=== PATIENT | female | born 1940 | race Caucasian/White ===

== ENCOUNTER 2020-10-31 10:37 | Outpatient (CLI) | payer MEDICARE, SELFPAY ==
--- NOTE | ~2020-10-31 | MM_ITS ---
EXAMINATION: MM screening jackelyn BI w jeevan HISTORY: Screening mammogram TECHNIQUE: Craniocaudal and mediolateral oblique 3-D tomosynthesis images were obtained and synthetic 2-D images were generated. CAD analysis was submitted and interpreted. COMPARISON: 01/11/2008 diagnostic right digital mammogram and right breast ultrasound 10/16/2017 bilateral digital screening mammogram BREAST PARENCHYMAL COMPOSITION: There are scattered areas of fibroglandular density. FINDINGS: There is no evidence of suspicious mass, calcification, or architectural distortion to sugg est malignancy in either breast. There has been no suspicious interval change. IMPRESSION: 1. No mammographic evidence of malignancy. 2. Recommend routine screening mammography in one year. Reviewed, dictated and finalized at location B. [employer]
== END 2020-10-31 10:38 | disposition home or self-care (01) ==
LOC: ANHIMG 10:41
PROVIDERS: PCP Internal Medicine; Visit Provider Nurse Practitioner
DX: Z12.31 Encounter for screening mammogram for malignant neoplasm of breast (principal)
CPT/HCPCS: 77063; 77067

== ENCOUNTER 2021-02-03 14:55 | Observation (INO) | payer MEDICARE, SELFPAY ==
[2021-02-03] VITALS (29 sets, daily range): BP systolic 106–154; BP diastolic 59–100; PULSE 65–79; RESP 10–18; TEMP 36.4; O2SAT 97–100
--- NOTE | ~2021-02-03 | XR_ITS ---
XR shoulder RT min 2V DATE: 02/03/2021 17:52 INDICATION: Fall, right shoulder injury, pain TECHNIQUE: 3 views COMPARISON: 02/03/2021 right humerus FINDINGS: There is a minimally comminuted transverse surgical neck fracture of the proximal right hum erus, with mild impaction, mild medial displacement, mild apex medial angulation. Diffuse osteopenia. Normal alignment at the acromioclavicular and glenohumeral joints. IMPRESSION: Transverse surgical neck fracture of proximal right humerus Diffuse osteopenia Reviewed, dictated and finalized at location A.
--- NOTE | ~2021-02-03 | XR_ITS ---
EXAMINATION: XR humerus RT DATE: 02/03/2021 15:59 INDICATION: Right upper arm injury and pain. TECHNIQUE: 2 views of right humerus were obtained. COMPARISON: None. FINDINGS: There is a transverse fracture of surgical neck of proximal right humerus. The distal fract ure fragment demonstrates impaction, 6 mm medial displacement, and 26 degrees lateral angulation. The glenohumeral joint is not well profiled. There is moderate acromioclavicular joint osteoarthritis. IMPRESSION: 1. Two-part fracture of proximal right humerus. Reviewed, dictated and finalized at location A.
--- NOTE | ~2021-02-03 | CT_ITS ---
EXAMINATION: CT brain wo con DATE: 02/05/2021 11:17 INDICATION: Head injury. TECHNIQUE: Computed tomography (CT) of the head was performed without intravenous contrast. The mA wa s adjusted according to patient size. Iterative reconstruction technique was employed. The dose-lengt h product was 605.33 mGy-cm. COMPARISON: Head CT 06/07/2017 FINDINGS: There are scattered areas of low attenuation in the cerebral white matter. There is no intr acranial hemorrhage, acute infarction, or abnormal intracranial mass lesion. The ventricles are verito l in size. The orbits are normal. There is mild mucosal thickening in the paranasal sinuses. The mast oid air cells are normal. IMPRESSION: 1. Worsened moderate nonspecific cerebral white matter disease, which likely represents chronic small vessel ischemic disease. Reviewed, dictated and finalized at location A. IMPRESSION: 1. Worsened moderate nonspecific cerebral white matter disease, which likely re presents chronic small vessel ischemic disease.
--- NOTE | ~2021-02-03 | XR_ITS ---
EXAMINATION: XR knee LT 3V DATE: 02/03/2021 15:59 INDICATION: Left knee pain. Fall. TECHNIQUE: 3 views of left knee were obtained. COMPARISON: Left knee radiographs 02/26/2007 FINDINGS: There is an old healed fracture of tibial diaphysis with internal fixation with intramedull maninder katerina and cable. There is a nondisplaced stellate fracture of the patella. There is moderate osteoa rthritis of medial compartment and mild osteoarthritis of lateral and patellofemoral compartments. Th ere is a moderate-sized knee joint effusion. IMPRESSION: 1. Nondisplaced stellate fracture of the patella. 2. Moderate left knee osteoarthritis. 3. Moderate-sized knee joint effusion. Reviewed, dictated and finalized at location A.
--- NOTE | ~2021-02-03 | XR_ITS ---
EXAMINATION: XR facial bones min 3V DATE: 02/03/2021 15:59 INDICATION: Face injury. Epistaxis. TECHNIQUE: 4 views of the facial bones were obtained. COMPARISON: Head CT 06/07/2017 FINDINGS: There is mild rightward deviation of the nasal septum. There are fractures of the nasal bon es. IMPRESSION: 1. Fractures of the nasal bones. Reviewed, dictated and finalized at location A.
--- NOTE | ~2021-02-03 | XR_ITS ---
XR chest 2V DATE: 02/03/2021 17:52 INDICATION: Generalized chest pain following a fall. TECHNIQUE: AP chest COMPARISON: 02/19/2009 two-view chest FINDINGS: Borderline heart size. There is aortic calcification and unfolding. No hilar or mediastinal enlargement. Diffuse osteopenia. Right surgical neck humeral fracture. Minimal infiltrate or atelectasis at the right lung base; otherwise no pulmonary infiltrate or consol idation, pleural effusion or pulmonary vascular congestion or pneumothorax is evident. Surgical clips extend either side of the diaphragmatic hiatus in the lower mid chest and left upper q uadrant. IMPRESSION: Right surgical neck humeral fracture Borderline heart size, aortic atherosclerosis Minimal infiltrate or atelectasis at the right lung base; otherwise no active pulmonary disease Reviewed, dictated and finalized at location A. IMPRESSION: Right surgical neck humeral fracture Borderline heart size, aortic atherosclerosis Minimal infiltrate or atelectasis at the right lung base; otherwise no active p ulmonary disease
--- NOTE | 2021-02-03 17:39 | ED.GENADULT ---
HPI - General Adult General Chief complaint: Fall Stated complaint: fall, right arm pain and left knee pain Time Seen by Provider: 02/03/21 17:32 Source: patient History of Present Illness HPI narrative: Patient is a 80 y/o female complaining of right shoulder pain, left knee after a fall. She states she tripped over a parking block at a restaurant approximately 3 hours ago. She describes her pain as a soreness and rates it as 8/10. There is no pain radiation. Movement aggravates her pain. She also struck on face on the ground. She has some chest pain. She denies any headache, neck pain, back pain or abdominal pain. She has no LOC. She is not sure when she had her last Tetanus shot. Related Data Home Medications Medication Instructions Recorded Confirmed coconut oil 1,000 mg capsule mg PO 09/07/19 09/17/20 Allergies Allergy/AdvReac Type Severity Reaction Status Date / Time No Known Allergies Allergy Verified 02/03/21 18:34 Review of Systems Constitutional: Constitutional: Denies chills, Denies fever(s), Denies headache(s) and Denies weakness Eyes: Eyes: Denies blurry vision ENT: Denies headache(s), Reports nasal trauma and Denies neck pain Cardiovascular: Cardiovascular: Reports chest pain and Denies dyspnea Respiratory: Respiratory: Denies cough and Denies dyspnea Gastrointestinal: Gastrointestinal: Denies abdominal pain, Denies diarrhea, Denies nausea and Denies vomiting Genitourinary: Genitourinary: Denies hematuria and Denies dysuria Musculoskeletal: Musculoskeletal: Denies back pain, Reports arthralgias (right shoulder pain, left knee pain) and Denies neck pain Neurologic: Denies headache(s) and Denies weakness [facility] Past Medical History Medical History Depression Post-menopausal Screening for breast cancer Surgical History Surgical History History of colonoscopy Family History Family History Mother Family history of arthritis Family history of diabetes mellitus in first degree relative Sibling Family history of diabetes mellitus in first degree relative Family history of heart disease in male family member before age 55 Father Acute myocardial infarction Other Hypertension Social History Social History Smoking status: Never smoker Second hand tobacco smoke exposure: No Alcohol intake: current Gender identity (if verbalized by the patient): Female Exam Const: General: no acute distress and well developed Orientation/consciousness: oriented to person, oriented to place, oriented to time and patient oriented x3 HENMT: Head: normocephalic Ears: external ears normal General nose exam: Other nasal findings present (bruise, abrasion on external nose) Eyes: General: appearance normal, both eyes and all related structures Conjunctivae: conjunctivae normal Neck: Neck: normal visual inspection and full ROM Chest: Chest palpation & inspection: normal inspection of the chest and no tenderness Resp: Effort & Inspection: normal respiratory effort Auscultation: clear to auscultation bilaterally Cardio: Rate: regular rate Rhythm: regular rhythm GI: GI Palp: No abdominal tenderness and Yes Soft to palpation Skin: General skin exam: normal color and turgor normal Trauma: abrasion (on nose) Neuro: General: oriented to person, oriented to place, oriented to time and patient oriented x3 Cognition (Neuro): normal cognition Extrem: General: normal to inspection, full ROM and no pedal edema Right upper extremity: shoulder/upper arm tenderness Left lower extremity: knee Details: tenderness Psych: Appearance: grossly normal Mental Status: mental status grossly normal Affect: normal affect Course Reevaluation(s) Reevaluation #1: Rechecked. Discussed with patient about alejo
--- NOTE | 2021-02-03 17:45 | ECG_ITS ---
Measurements Intervals Henniker Rate: 74 P: 29 OR: 152 QRS: -18 QRSD: 86 T: 11 QT: 392 QTc: 436 Interpretive Statements SINUS RHYTHM DELAYED PRECORDIAL R/S TRANSITION BORDERLINE T WAVE ABNORMALITY- ANT/INF LEADS BASELINE ARTIFACT- I, II, III, AVR, AVL, AVF BORDERLINE ECG Electronically Signed On 02-04-2021 8:23:44 CDT by Dominguez Jack D.O.
[2021-02-03] MEDS: HYDROcodone/acetaminophen (*CRX) 5-325 MG TABLET 1 TAB PO ×2 (18:34→21:52)
[2021-02-03 18:42] LABS: Basophils Percent Auto 0.3 % (0.2-1.2); Eosinophils Percent Auto 0.1 % (0-4.4); Hematocrit 38.9 % (37.0-47.0); Hemoglobin 12.4 g/dL (12.0-15.0); Immature Granulocyte Absolute 0.03 K/mm3 (0.00-0.031); Immature Granulocyte Percent A 0.3 % (0-0.5); Lymphocytes Absolute Auto 0.81 K/mm3 (0.9-3.2); Lymphocytes Percent Auto 7.5 % (18.3-44.2); Mean Corpuscular HGB Conc 31.9 g/dl (32-36); Mean Platelet Volume 9.9 fl (7.4-10.4); Monocytes Absolute Auto 0.6 K/mm3 (0.1-0.6); Monocytes Percent Auto 5.4 % (2.6-8.5); Neutrophils Absolute Auto 9.3 K/mm3 (1.3-6.7); Neutrophils Percent Auto 86.4 % (45.5-73.1); Platelet Count Result 236 k/mm3 (150-375); Red Blood Count 4.14 M/mm3 (4.2-5.4); Red Cell Distribution Width 15.8 % (11.5-14.5); White Blood Count 10.8 K/mm3 (4.5-10.0)
[2021-02-03 18:52] LABS: Alanine Aminotransferase 11 U/L (4-35); Albumin Level 3.7 g/dL (3.5-5.1); Alkaline Phosphatase 85 U/L (38-126); Anion Gap 4 mmol/L (8-16); Aspartate Amino Transferase 28 U/L (14-36); Bilirubin,Total 0.7 mg/dL (0.2-1.3); Blood Urea Nitrogen 9 mg/dL (7-17); Carbon Dioxide 28 mmol/L (22-30); Chloride 109 mmol/L (98-107); Estimated CRCL calculation 40 ml/min; Estimated Glomerular Filt Rate 60; Glucose 118 mg/dL (65-105); Potassium 4.1 mmol/L (3.4-5.0); Sodium 141 mmol/L (137-145)
[2021-02-03 19:04] LABS: Troponin I < 0.012 ng/mL (0.000-0.034)
[2021-02-03 22:11] LABS: Troponin I < 0.012 ng/mL (0.000-0.034)
[2021-02-03] MEDS: TETANUS,DIPHTHERIA,AC PERTUSSIS ADULT (0.5 ML) BOOSTRIX IM (22:46)
--- NOTE | 2021-02-03 23:25 | PC.NURSE ---
Pt was aliment that she go home. Pt was assisted with getting dressed with Rt arm immobilizer and Lt knee immobilizer. Pt however, was unable to safely navigate into the car. Pt brought back to ER room for admission. Dr Johnston talking with family.
[2021-02-04] VITALS (8 sets, daily range): BP systolic 121–138; BP diastolic 61–84; PULSE 61–99; RESP 16–20; TEMP 36.3–37; O2SAT 94–100; BMI 29.2
--- NOTE | 2021-02-04 00:47 | ADMGEN ---
This patient, Lsia Oneal, was admitted to Medical Room 246-. Patient/family oriented to hospital policies and general routines including ID bracelet, bed and alarms, visiting hours, pain management, procedures, bathroom and other care routines, personal items, smoking policy, room service/diet, and visiting hours. Information on how to activate the Rapid Response Team has been discussed. Patient/Family are encouraged to report perceived risks to care and to ask questions if they do not understand what they are told or what they should do.
--- NOTE | 2021-02-04 01:28 | PM.IMHP ---
H&P: HPI History of Present Illness Date/Time: 02/04/21 01:28 Chief Complaint: Right upper extremity and left knee pain after fall Narrative: This is a pleasant 80-year-old female who presented to the hospital today after she tripped over a parking block outside of a restaurant and fell. The patient fell face forward and hit her face on the ground as well as her right upper extremity and left knee. She denies passing out, seizure-like activity, chest pain, or shortness of breath before falling. On arrival to the emergency room the patient was complaining of right upper extremity pain and left knee pain. She denied any recent fevers, chills, cough, nausea, vomiting, chest pain, shortness of breath, wheezing, abdominal pain, dysuria, hematuria, diarrhea, or rectal bleeding. Plain films demonstrated a two-part fracture of proximal right humerus and a nondisplaced stellate fracture of the patella. The patient was placed in a splint and ER provider attempted to send her home although her son could not get her in the car and they decided she would be better admitted to the hospital for possible placement or rehab as her family clearly will not be able to care for her. On my encounter with the patient tonight her pain is controlled and she has no other complaints. Review of Systems Review of Systems: All systems reviewed & are unremarkable except as noted in HPI and below PMFSH Past Medical History Medical History Depression Post-menopausal Screening for breast cancer Surgical History Surgical History History of colonoscopy Family History Family History Mother Family history of arthritis Family history of diabetes mellitus in first degree relative Sibling Family history of heart disease in male family member before age 55 Family history of diabetes mellitus in first degree relative Father Acute myocardial infarction Social History Social History Smoking status: Never smoker Second hand tobacco smoke exposure: No Alcohol intake: current Drinks per week: 7 Substance use: never Other substance usage details: patient says she drinks alittle rum or wiskey every night Gender identity (if verbalized by the patient): Female Spiritual care concerns: No Meds Home Medications and Allergies Home Medications Medication Instructions Recorded Confirmed Type omeprazole 40 mg capsule,delayed 40 mg PO DAILY #90 cap 08/29/20 02/04/21 Rx release alendronate 70 mg tablet 70 mg PO WEEKLY #30 tablet 09/17/20 02/04/21 Rx aspirin 81 mg PO DAILY 02/04/21 02/04/21 History Allergies Allergy/AdvReac Type Severity Reaction Status Date / Time No Known Allergies Allergy Verified 02/03/21 18:34 Vital Signs Vital Signs - 24 hr 02/03/21 14:58 02/03/21 17:35 02/03/21 17:36 Temperature 36.4 C Pulse Rate 75 79 Respiratory Rate 18 15 Blood Pressure 154/63 H 124/83 Pulse Oximetry 98 99 100 02/03/21 17:37 02/03/21 18:37 02/03/21 18:45 Temperature Pulse Rate Respiratory Rate Blood Pressure 124/83 Pulse Oximetry 100 99 100 02/03/21 18:47 02/03/21 19:00 02/03/21 19:01 Temperature Pulse Rate Respiratory Rate Blood Pressure 139/66 121/80 Pulse Oximetry 98 99 100 02/03/21 19:15 02/03/21 19:16 02/03/21 19:30 Temperature Pulse Rate Respiratory Rate Blood Pressure 133/96 H Pulse Oximetry 99 100 100 02/03/21 19:32 02/03/21 19:45 02/03/21 19:46 Temperature Pulse Rate Respiratory Rate Blood Pressure 128/76 128/100 H Pulse Oximetry 98 98 98 02/03/21 19:47 02/03/21 20:01 02/03/21 20:17 Temperature Pulse Rate Respiratory Rate Blood Pressure 154/69 H 115/86 Pulse Oximetry 98 02/03/21 20:31 02/03/21 20:46
[2021-02-04] MEDS: HYDROcodone/acetaminophen (*CRX) 5-325 MG TABLET 1 TAB PO ×2 (01:38→14:33)
[2021-02-04] MEDS: MORPHINE SULFATE (*CRX) 2 MG/ML INJ IV PUSH ×2 (03:48→07:44)
--- NOTE | 2021-02-04 07:34 | PM.CNOR ---
Assessment and Plan Assessment and plan (1) Fracture of proximal end of humerus: Qualifiers: Encounter type: initial encounter Fracture alignment: displaced Fracture morphology: other fracture Fracture type: closed Laterality: right Qualified Code(s): S42.291A - Other displaced fracture of upper end of right humerus, initial encounter for closed fracture Code(s): S42.209A - Unspecified fracture of upper end of unspecified humerus, initial encounter for closed fracture Status: Acute Assessment and Plan: New patient evaluation status post injury fall with injury rt shoulder and left knee. The history, physical exam and radiographs reviewed with the patient. Type of fractures discussed in detail . Treatment options including operative and non operative treatment reviewed . Risks, benefits and alternatives of each treatment discussed in detail . The patient has declined surgical treatment. Risks of treatment decision discussed in detail. Potential problems with displacement of the fracture, loss of alignment, nonunion, malunion and dysfunction discussed in detail. The patient's questions were answered. They verbalized understanding and agreement. Conservative treatment with immobilization, ice. Currently in immobilizer (2) Closed fracture of left patella: Qualifiers: Encounter type: initial encounter Fracture alignment: displaced Fracture morphology: comminuted Qualified Code(s): S82.042A - Displaced comminuted fracture of left patella, initial encounter for closed fracture Code(s): S82.002A - Unspecified fracture of left patella, initial encounter for closed fracture Status: Acute Assessment and Plan: Treatment options including operative and non operative treatment reviewed . Risks, benefits and alternatives of each treatment discussed in detail . The patient has declined surgical treatment. Risks of treatment decision discussed in detail. Potential problems with displacement of the fracture, loss of alignment, nonunion, malunion and dysfunction discussed in detail. The patient's questions were answered. They verbalized understanding and agreement. Conservative treatment with immobilization, ice , compression and elevation. Knee immobilizer. WBAT. Therapy to eval and assist with transfers. May need extended placement History of Present Illness HPI Consult date: 02/04/21 Requesting physician: Bebe Johnston MD Chief complaint: right shoulder fracture, left knee fracture Narrative: 80yo woman fall yesterday. On ER exam found to have rt shoulder and left knee fxs, Unable to ambulate on own. Admitted for further care. No prior hx of shoulder or knee problems from patient report. Lives with son, independent ambulator. Also with facial injuries at time of fall. Denies LOC, head or neck injury. Review of Systems Constitutional: Constitutional: Denies fever(s) Eyes: Eyes: Denies blurry vision ENT: Reports Normal hearing present Cardiovascular: Cardiovascular: Denies chest pain and Denies dyspnea Respiratory: Respiratory: Denies dyspnea and Denies wheezing Gastrointestinal: Gastrointestinal: Denies abdominal pain Genitourinary: Genitourinary: Denies urinary urgency Musculoskeletal: Musculoskeletal: Reports as per HPI and Denies numbness Integumentary/Breasts: Skin/Breast: Denies changing lesions and Denies sores Neurologic: Reports Normal hearing present, Denies behavioral changes, Denies confusion, Denies numbness and Denies convulsions Psychiatric: Psychiatric: Denies behavioral changes, Denies confusion and Denies hallucinations Endocrine: Endocrine: Denies heat intolerance Hematologic/Lymphatic: Hematologic/Lymphatic: Denies easy bleeding Allergic/Immunologic: Allergic/Immunologic: Denies wheezing PMFSH Past Medical History Medical History Depression Post-menopausal Screening for breast cancer
[2021-02-04] MEDS: PANTOPRAZOLE 40 MG TABLET PO (08:01)
--- NOTE | 2021-02-04 15:42 | PM.IMPN ---
Progress Note: A&P Assessment and Plan (1) Fall: Code(s): W19.XXXA - Unspecified fall, initial encounter Status: Acute Assessment and Plan: Patient had a mechanical fall on 02/03/2021 in which she tripped over a parking block outside of a restaurant. Denies any precipitating symptoms including dizziness or lightheadedness. She struck her face on the ground during the fall. She denied loss of consciousness. The fall was witnessed and she was helped up immediately. Will obtain head CT Fall precautions in place Appreciate PT/OT evaluation She received tetanus shot on 02/03/2021 Care coordination following. She will likely need ongoing therapy given her injuries. (2) Fracture of proximal end of humerus: Qualifiers: Encounter type: initial encounter Fracture alignment: displaced Fracture morphology: other fracture Fracture type: closed Laterality: right Qualified Code(s): S42.291A - Other displaced fracture of upper end of right humerus, initial encounter for closed fracture Code(s): S42.209A - Unspecified fracture of upper end of unspecified humerus, initial encounter for closed fracture Status: Acute Assessment and Plan: Secondary to fall. Humerus x-ray showed 2 part fracture proximal right humerus. Shoulder x-ray showed transverse surgical neck fracture of proximal right humerus. Appreciate orthopedic surgery consultation Patient has elected for conservative management. Continue immobilizer Supportive care to include ice and elevation Analgesics available as needed (3) Closed fracture of left patella: Qualifiers: Encounter type: initial encounter Fracture alignment: displaced Fracture morphology: comminuted Qualified Code(s): S82.042A - Displaced comminuted fracture of left patella, initial encounter for closed fracture Code(s): S82.002A - Unspecified fracture of left patella, initial encounter for closed fracture Status: Acute Assessment and Plan: Again secondary to fall. Knee x-ray showed nondisplaced delayed fracture of patella Plan as above. Appreciate orthopedic surgery consultation and PT/OT eval. Continue supportive care. Analgesics available as needed. Continue knee immobilizer and weight-bearing as tolerated. (4) Nasal fracture: Qualifiers: Encounter type: initial encounter Fracture type: closed Qualified Code(s): S02.2XXA - Fracture of nasal bones, initial encounter for closed fracture Code(s): S02.2XXA - Fracture of nasal bones, initial encounter for closed fracture Status: Acute Assessment and Plan: Evident on facial x-ray with mild rightward deviation of the nasal septum. Sustained during fall. Supportive care and analgesics prn (5) Osteoporosis: Code(s): M81.0 - Age-related osteoporosis without current pathological fracture Status: Acute Assessment and Plan: DEXA performed 11/02/2019 demonstrated osteoporosis. She is on weekly alendronate therapy. She home benefit from repeat DEXA scan as an outpatient for further evaluation and may need medication adjustment Check vitamin-D level Subjective Date/time seen: 02/04/21 15:42 Interval history: Date of service: 02/04/2021 Lisa Oneal is a healthy 80-year-old female with a history of depression who is seen in follow-up for injuries sustained in a mechanical fall. She is having pain today that she reports as 8/10, especially in the knee and the right arm. Her nose is sore from her fracture. Otherwise, she reports she is doing very well and has no additional concerns. She states that she feels very depressed about being in the hospital and about having a fall. She notes that she has been trembling and she feels this is due to being anxious. She denies fever or chills. She denies abdominal pain, nausea, or vomiting. Her last bowel movement was 2-3 days ago and she reports this is ty
[2021-02-04 21:08] LABS: SARS-CoV-2 RNA PCR Negative
[2021-02-05 02:00] VITALS: BP 129/65; PULSE 87; RESP 20; TEMP 36.7; O2SAT 98
[2021-02-05] MEDS: HYDROcodone/acetaminophen (*CRX) 5-325 MG TABLET 1 TAB PO ×2 (04:20→11:33)
[2021-02-05 05:09] LABS: Hematocrit 33.6 % (37.0-47.0); Mean Corpuscular HGB Conc 32.7 g/dl (32-36); Mean Corpuscular Hemoglobin 30.3 pg (26-34); Mean Corpuscular Volume 92.6 fl (80-100); Mean Platelet Volume 10.1 fl (7.4-10.4); Platelet Count Result 215 k/mm3 (150-375); Red Blood Count 3.63 M/mm3 (4.2-5.4); Red Cell Distribution Width 15.8 % (11.5-14.5); White Blood Count 8.5 K/mm3 (4.5-10.0)
[2021-02-05 05:27] LABS: Anion Gap 4 mmol/L (8-16); Blood Urea Nitrogen 10 mg/dL (7-17); Calcium 8.6 mg/dL (8.4-10.2); Carbon Dioxide 26 mmol/L (22-30); Chloride 104 mmol/L (98-107); Estimated CRCL calculation 49 ml/min; Estimated Glomerular Filt Rate > 60; Glucose 111 mg/dL (65-105); Potassium 4.1 mmol/L (3.4-5.0); Sodium 134 mmol/L (137-145)
[2021-02-05 05:50] LABS: Vitamin D 25 Hydroxy 38.5 ng/mL
[2021-02-05 06:00] VITALS: BP 124/64; PULSE 84; RESP 20; TEMP 36.7; O2SAT 98
[2021-02-05] MEDS: PANTOPRAZOLE 40 MG TABLET PO (08:43)
--- NOTE | 2021-02-05 09:24 | PM.PNORT ---
Progress Note: A&P Assessment and Plan (1) Fracture of proximal end of humerus: Qualifiers: Encounter type: initial encounter Fracture alignment: displaced Fracture morphology: other fracture Fracture type: closed Laterality: right Qualified Code(s): S42.291A - Other displaced fracture of upper end of right humerus, initial encounter for closed fracture Code(s): S42.209A - Unspecified fracture of upper end of unspecified humerus, initial encounter for closed fracture Status: Acute Assessment and Plan: Continue conservative treatment with immobilization, ice Elevate on pillows. Pain control. (2) Closed fracture of left patella: Qualifiers: Encounter type: initial encounter Fracture alignment: displaced Fracture morphology: comminuted Qualified Code(s): S82.042A - Displaced comminuted fracture of left patella, initial encounter for closed fracture Code(s): S82.002A - Unspecified fracture of left patella, initial encounter for closed fracture Status: Acute Assessment and Plan: Continue conservative treatment with immobilization, ice, compression and elevation. Knee immobilizer. WBAT. PT/OT May benefit from aspiration of knee joint effusion for pain relief. Likely will require placement at discharge. Subjective Subjective Date/Time Seen: 02/05/21 0835 Interval history: Complaints of left knee pain mainly. Difficulty with PT due to pain. Review of Systems Constitutional: Constitutional: Denies fever(s) Eyes: Eyes: Denies blurry vision ENT: Reports Normal hearing present Cardiovascular: Cardiovascular: Denies chest pain and Denies dyspnea Respiratory: Respiratory: Denies dyspnea and Denies wheezing Gastrointestinal: Gastrointestinal: Denies abdominal pain Genitourinary: Genitourinary: Denies urinary urgency Musculoskeletal: Musculoskeletal: Reports as per HPI and Denies numbness Integumentary/Breasts: Skin/Breast: Denies changing lesions and Denies sores Neurologic: Reports Normal hearing present, Denies behavioral changes, Denies confusion, Denies numbness and Denies convulsions Psychiatric: Psychiatric: Denies behavioral changes, Denies confusion and Denies hallucinations Endocrine: Endocrine: Denies heat intolerance Hematologic/Lymphatic: Hematologic/Lymphatic: Denies easy bleeding Allergic/Immunologic: Allergic/Immunologic: Denies wheezing Exam Const: General: healthy appearing; No in distress or confusion Orientation/consciousness: oriented to person, oriented to place, oriented to time and No confusion HENMT: Head: normal to inspection, normocephalic and atraumatic Eyes: Conjunctivae: conjunctivae normal Sclera: sclerae normal Neck: Neck: supple and nontender Resp: Effort & Inspection: normal respiratory effort and no audible wheezes Cardio: Rate: regular rate Rhythm: regular rhythm Skin: General skin exam: no rashes or lesions noted Neuro: General: oriented to person, oriented to place, oriented to time and No confusion Extrem: Right upper extremity: shoulder/upper arm tenderness of the proximal humerus, swelling of the proximal humerus and of the shoulder joint, axillary nerve sensory function normal, abnormal ROM pain with passive ROM with internal rotation and external rotation- and with range as follows ( restricted secondary to fracture) and other (RC 3/5, Bicep 3/5, Deltoid 4/5, ER 3/5), elbow/forearm normal ROM; no tenderness and no swelling, wrist normal ROM and radial pulse present; no tenderness and Extremity exam: right hand neuromotor exam normal wrist extension normal, thumb opposition normal, thumb IP flexion normal and fingers 2-5 ABduction normal, neurosensory exam normal radial nerve sensory function normal, ulnar nerve sensory function normal, median nerve sensory function normal and digital nerve sensory function normal and vascular exam radial pulse present and normal capillary refill; no tenderness, no swe
[2021-02-05 10:00] VITALS: BP 115/66; PULSE 81; RESP 16; TEMP 36.4; O2SAT 98
--- NOTE | 2021-02-05 11:33 | PM.IMPN ---
Progress Note: A&P Assessment and Plan (1) Fall: Code(s): W19.XXXA - Unspecified fall, initial encounter Status: Acute Assessment and Plan: Patient had a mechanical fall on 02/03/2021 in which she tripped over a parking block outside of a restaurant. Denies any precipitating symptoms including chest pain, dizziness or lightheadedness. She struck her face on the ground during the fall. She denied loss of consciousness. The fall was witnessed and she was helped up immediately. Head CT was negative for acute findings. Fall precautions in place Appreciate PT/OT evaluation She received tetanus shot on 02/03/2021 Care coordination following. She will likely need ongoing therapy given her injuries. Planning for SNF. (2) Fracture of proximal end of humerus: Qualifiers: Encounter type: initial encounter Fracture alignment: displaced Fracture morphology: other fracture Fracture type: closed Laterality: right Qualified Code(s): S42.291A - Other displaced fracture of upper end of right humerus, initial encounter for closed fracture Code(s): S42.209A - Unspecified fracture of upper end of unspecified humerus, initial encounter for closed fracture Status: Acute Assessment and Plan: Secondary to fall. Humerus x-ray showed 2 part fracture of proximal right humerus. Shoulder x-ray showed transverse surgical neck fracture of proximal right humerus. Appreciate orthopedic surgery consultation Patient has elected for conservative management. Continue immobilizer Supportive care to include ice and elevation Analgesics available as needed (3) Closed fracture of left patella: Qualifiers: Encounter type: initial encounter Fracture alignment: displaced Fracture morphology: comminuted Qualified Code(s): S82.042A - Displaced comminuted fracture of left patella, initial encounter for closed fracture Code(s): S82.002A - Unspecified fracture of left patella, initial encounter for closed fracture Status: Acute Assessment and Plan: Again secondary to fall. Knee x-ray showed nondisplaced delayed fracture of patella Plan as above. Appreciate orthopedic surgery consultation and PT/OT eval. Continue supportive care. Analgesics available as needed. Continue knee immobilizer and weight-bearing as tolerated. (4) Nasal fracture: Qualifiers: Encounter type: initial encounter Fracture type: closed Qualified Code(s): S02.2XXA - Fracture of nasal bones, initial encounter for closed fracture Code(s): S02.2XXA - Fracture of nasal bones, initial encounter for closed fracture Status: Acute Assessment and Plan: Evident on facial x-ray with mild rightward deviation of the nasal septum. Sustained during fall. Supportive care and analgesics prn (5) Osteoporosis: Code(s): M81.0 - Age-related osteoporosis without current pathological fracture Status: Acute Assessment and Plan: DEXA performed 11/02/2019 demonstrated osteoporosis. She is on weekly alendronate therapy. Vitamin D level is sufficient. She will benefit from repeat DEXA scan as an outpatient for further evaluation and may need medication adjustment Subjective Date/time seen: 02/05/21 11:33 Interval history: Date of service: 02/05/2021 Lisa Oneal is a healthy 80-year-old female with a history of depression who is seen in follow-up for injuries sustained in a mechanical fall. She is still having pretty significant pain in her left knee today that she rates as 8/10. Her right arm pain has improved and she rates this as a 5/10. She has some soreness of her nose and face. No difficulty with breathing. She denies shortness breath, cough, or chest pain. Denies dizziness, lightheadedness, or weakness. No nausea or vomiting. Her appetite has been fair. Denies urinary symptoms. She thinks that she had a bowel movement yesterday. She has
[2021-02-05 14:00] VITALS: BP 114/66; PULSE 94; RESP 14; TEMP 36.6; O2SAT 97
[2021-02-05 18:00] VITALS: BP 115/66; PULSE 82; RESP 18; TEMP 36.9; O2SAT 99
[2021-02-05 21:44] VITALS: BP 125/73; PULSE 79; RESP 20; TEMP 37.1; O2SAT 97
[2021-02-06 01:08] VITALS: BP 134/89; PULSE 91; RESP 20; TEMP 37; O2SAT 98
[2021-02-06] MEDS: HYDROcodone/acetaminophen (*CRX) 5-325 MG TABLET 1 TAB PO (04:42)
[2021-02-06 05:38] LABS: Hematocrit 33.5 % (37.0-47.0); Hemoglobin 10.8 g/dL (12.0-15.0)
[2021-02-06 05:41] VITALS: BP 108/64; PULSE 90; RESP 20; TEMP 37.2; O2SAT 97
[2021-02-06 05:46] LABS: Anion Gap 4 mmol/L (8-16); Blood Urea Nitrogen 11 mg/dL (7-17); Calcium 8.8 mg/dL (8.4-10.2); Carbon Dioxide 26 mmol/L (22-30); Chloride 104 mmol/L (98-107); Estimated CRCL calculation 49 ml/min; Estimated Glomerular Filt Rate > 60; Glucose 102 mg/dL (65-105); Sodium 134 mmol/L (137-145)
[2021-02-06 08:04] VITALS: PULSE 90; RESP 20; O2SAT 97
[2021-02-06] MEDS: PANTOPRAZOLE 40 MG TABLET PO (08:15)
[2021-02-06 10:00] VITALS: BP 110/68; PULSE 76; RESP 16; TEMP 36.4; O2SAT 98
--- NOTE | 2021-02-06 11:55 | PM.PNORT ---
Progress Note: A&P Assessment and Plan (1) Fracture of proximal end of humerus: Qualifiers: Encounter type: initial encounter Fracture alignment: displaced Fracture morphology: other fracture Fracture type: closed Laterality: right Qualified Code(s): S42.291A - Other displaced fracture of upper end of right humerus, initial encounter for closed fracture Code(s): S42.209A - Unspecified fracture of upper end of unspecified humerus, initial encounter for closed fracture Status: Acute Assessment and Plan: Continue conservative treatment with immobilization, ice Elevate on pillows. Pain control. Follow up 2 weeks scheduled at outpatient orthopedic clinic. (2) Closed fracture of left patella: Qualifiers: Encounter type: initial encounter Fracture alignment: displaced Fracture morphology: comminuted Qualified Code(s): S82.042A - Displaced comminuted fracture of left patella, initial encounter for closed fracture Code(s): S82.002A - Unspecified fracture of left patella, initial encounter for closed fracture Status: Acute Assessment and Plan: Continue conservative treatment with immobilization, ice, compression and elevation. Knee immobilizer. WBAT. PT/OT May benefit from aspiration of knee joint effusion for pain relief- patient declines at this time. SNF when medically stable. Subjective Subjective Date/Time Seen: 02/06/21 11:55 Review of Systems Constitutional: Constitutional: Denies fever(s) Eyes: Eyes: Denies blurry vision ENT: Reports Normal hearing present Cardiovascular: Cardiovascular: Denies chest pain and Denies dyspnea Respiratory: Respiratory: Denies dyspnea and Denies wheezing Gastrointestinal: Gastrointestinal: Denies abdominal pain Genitourinary: Genitourinary: Denies urinary urgency Musculoskeletal: Musculoskeletal: Reports as per HPI and Denies numbness Integumentary/Breasts: Skin/Breast: Denies changing lesions and Denies sores Neurologic: Reports Normal hearing present, Denies behavioral changes, Denies confusion, Denies numbness and Denies convulsions Psychiatric: Psychiatric: Denies behavioral changes, Denies confusion and Denies hallucinations Endocrine: Endocrine: Denies heat intolerance Hematologic/Lymphatic: Hematologic/Lymphatic: Denies easy bleeding Allergic/Immunologic: Allergic/Immunologic: Denies wheezing Exam Const: General: healthy appearing; No in distress or confusion Orientation/consciousness: oriented to person, oriented to place, oriented to time and No confusion HENMT: Head: normal to inspection, normocephalic and atraumatic Eyes: Conjunctivae: conjunctivae normal Sclera: sclerae normal Neck: Neck: supple and nontender Resp: Effort & Inspection: normal respiratory effort and no audible wheezes Cardio: Rate: regular rate Rhythm: regular rhythm Skin: General skin exam: no rashes or lesions noted Neuro: General: oriented to person, oriented to place, oriented to time and No confusion Extrem: Right upper extremity: shoulder/upper arm tenderness of the proximal humerus, swelling of the proximal humerus and of the shoulder joint, axillary nerve sensory function normal, abnormal ROM pain with passive ROM with internal rotation and external rotation- and with range as follows ( restricted secondary to fracture) and other (RC 3/5, Bicep 3/5, Deltoid 4/5, ER 3/5), elbow/forearm normal ROM; no tenderness and no swelling, wrist normal ROM and radial pulse present; no tenderness and Extremity exam: right hand neuromotor exam normal wrist extension normal, thumb opposition normal, thumb IP flexion normal and fingers 2-5 ABduction normal, neurosensory exam normal radial nerve sensory function normal, ulnar nerve sensory function normal, median nerve sensory function normal and digital nerve sensory function normal and vascular exam radial pulse present and normal capillary refill; no tenderness, no swelling
--- NOTE | 2021-02-06 13:38 | PM.DS ---
DS: Admitting Diagnosis Admitting Diagnosis Admitting Diagnosis: Fall DS: Discharge Diagnosis Discharge Diagnosis (1) Fall: Code(s): W19.XXXA - Unspecified fall, initial encounter Status: Acute Assessment and Plan: Patient had a mechanical fall on 02/03/2021 in which she tripped over a parking block outside of a restaurant. Denies any precipitating symptoms including chest pain, dizziness or lightheadedness. She struck her face on the ground during the fall. She denied loss of consciousness. The fall was witnessed and she was helped up immediately. Head CT was negative for acute findings. She received a tetanus shot on 02/03/2021. She was evaluated by PT/OT. Given her injuries, it was determined that she would need further therapy and was placed in SNF. (2) Fracture of proximal end of humerus: Qualifiers: Encounter type: initial encounter Fracture alignment: displaced Fracture morphology: other fracture Fracture type: closed Laterality: right Qualified Code(s): S42.291A - Other displaced fracture of upper end of right humerus, initial encounter for closed fracture Code(s): S42.209A - Unspecified fracture of upper end of unspecified humerus, initial encounter for closed fracture Status: Acute Assessment and Plan: Secondary to fall. Humerus x-ray showed 2 part fracture of proximal right humerus. Shoulder x-ray showed transverse surgical neck fracture of proximal right humerus. She was seen in consultation by Orthopedic surgery. She elected for conservative management. Arm immobilizer applied. Supportive care provided including ice, elevation, analgesics as needed. She will need to follow-up with orthopedics in 2 weeks. (3) Closed fracture of left patella: Qualifiers: Encounter type: initial encounter Fracture alignment: displaced Fracture morphology: comminuted Qualified Code(s): S82.042A - Displaced comminuted fracture of left patella, initial encounter for closed fracture Code(s): S82.002A - Unspecified fracture of left patella, initial encounter for closed fracture Status: Acute Assessment and Plan: Again secondary to fall. Knee x-ray showed nondisplaced stellate fracture of left patella. As above, she was seen in consultation by Orthopedic surgery and opted for conservative management. Knee immobilizer applied. Weight-bearing as tolerated recommended. Continue therapy at SNF. Orthopedic surgery follow-up in 2 weeks. (4) Nasal fracture: Qualifiers: Encounter type: initial encounter Fracture type: closed Qualified Code(s): S02.2XXA - Fracture of nasal bones, initial encounter for closed fracture Code(s): S02.2XXA - Fracture of nasal bones, initial encounter for closed fracture Status: Acute Assessment and Plan: Evident on facial x-ray with mild rightward deviation of the nasal septum. Sustained during fall. Supportive care provided. (5) Osteoporosis: Code(s): M81.0 - Age-related osteoporosis without current pathological fracture Status: Acute Assessment and Plan: DEXA performed 11/02/2019 demonstrated osteoporosis. She is on weekly alendronate therapy. Vitamin D level is sufficient. She will benefit from repeat DEXA scan as an outpatient for further evaluation and may need medication adjustment DS: Summary Hospital Course Reason for hospitalization: Fall Hospital Course: Date of admission: 02/03/2021 Date of discharge: 02/06/2021 Lisa Oneal is a healthy 80-year-old female with a history of depression and osteoporosis presented to the emergency department on 02/03/2021 after suffering a fall. She tripped over a parking block at a restaurant and struck her face on the ground. She denied loss of consciousness. She had immediate right shoulder pain and left knee pain. Upon presentation to the emergency department, her vital signs are stable, she had an very mild leukoc
[2021-02-06 14:00] VITALS: BP 98/63; PULSE 87; RESP 14; TEMP 36.7; O2SAT 99
--- NOTE | 2021-02-06 14:15 | PCOTNOTE ---
Attempted to see Patient for afternoon session. Patient verbalized she just laid down, was in pain, and needed sleep. Patient would not participate. Per RN, Patient will be transferred today to [place].
== END 2021-02-06 17:30 ==
LOC: ANHED 22:39 → ANH2MED 02-04 00:11
PROVIDERS: Physician Assistant; Admitting Provider Family Medicine; Emergency Provider Emergency Medicine; PCP Internal Medicine; Visit Provider Internal Medicine
DX: S42.221A 2-part displaced fracture of surgical neck of right humerus, initial encounter for closed fracture (principal); S82.042A Displaced comminuted fracture of left patella, initial encounter for closed fracture; S02.2XXA Fracture of nasal bones, initial encounter for closed fracture; R07.9 Chest pain, unspecified; W01.0XXA Fall on same level from slipping, tripping and stumbling without subsequent striking against object, initial encounter; K21.9 Gastro-esophageal reflux disease without esophagitis; M81.0 Age-related osteoporosis without current pathological fracture; F32.9 Major depressive disorder, single episode, unspecified; I70.0 Atherosclerosis of aorta; M17.12 Unilateral primary osteoarthritis, left knee; Z20.822 Contact with and (suspected) exposure to COVID-19; Z23 Encounter for immunization
CPT/HCPCS: 36415; 70150; 70450; 71046; 73030; 73060; 73562; 80048; 80053; 82306; 84484; 85014; 85018; 85025; 85027; 90471; 90715; 93005; 96374; 96376; 97110; 97161; 97165; 97530; 97535; 99285; A9270; C9803; G0378; J2270; U0003; U0005

== ENCOUNTER 2021-04-14 12:49 | Outpatient (CLI) | payer MEDICARE, SELFPAY ==
--- NOTE | ~2021-04-14 | US_ITS ---
EXAMINATION: US venous doppler [facility] DATE: 04/14/2021 13:42 INDICATION: Lower limb swelling TECHNIQUE: Deras scale images without and with compression and Doppler images of the bilateral lower e xtremity veins were obtained. COMPARISON: None FINDINGS: The right common femoral vein, profunda femoral vein, femoral vein, popliteal vein, peroneal trunk, p osterior tibial veins, and greater saphenous vein are patent. There is partial thrombosis of the distal aspect of the left common femoral vein. The left profunda f emoral vein, femoral vein, popliteal vein, peroneal trunk, posterior tibial veins, and greater saphen ous vein are patent. IMPRESSION: 1. Partial thrombosis of the distal aspect of the left common femoral vein. Reviewed, dictated and finalized at location A.
--- NOTE | ~2021-04-14 | XR_ITS ---
EXAMINATION: XR forearm RT 2V INDICATION: Right arm pain TECHNIQUE: Two views of the right forearm are obtained. COMPARISON: None available FINDINGS: There is soft tissue swelling of the proximal forearm. Internal stabilization hardware is p resent in the distal radius. No acute fracture is identified. The bones are osteopenic. IMPRESSION: 1. Soft tissue swelling of the proximal forearm without acute osseous abnormality. Reviewed, dictated and finalized at location A. IMPRESSION: 1. Soft tissue swelling of the proximal forearm without acute osseous abnormali ty.
== END 2021-04-14 12:50 | disposition home or self-care (01) ==
LOC: ANHIMG 12:53
PROVIDERS: PCP Internal Medicine; Visit Provider Internal Medicine
DX: I82.412 Acute embolism and thrombosis of left femoral vein (principal); M79.89 Other specified soft tissue disorders; R60.9 Edema, unspecified
CPT/HCPCS: 73090; 93970

== ENCOUNTER 2021-09-22 12:25 | Outpatient (CLI) | payer MEDICARE, SELFPAY ==
--- NOTE | ~2021-09-22 | US_ITS ---
EXAMINATION: US venous doppler [facility] EXAM DATE: 09/22/2021 13:31 INDICATION: R07.9 - Chest pain, unspecified. TECHNIQUE: Multiple grayscale, color flow and Doppler images of the left lower extremity deep venous system obtained and reviewed. Comparison is made to prior examination from 04/14/2021. FINDINGS: LEFT SIDE Common femoral: -------- Normal. Profunda femoral: ------- Normal. Femoral: Predominantly linear echogenic scarring proximal and mid aspect. Equivoca l residual treatable thrombosed distally. Popliteal: Normal. Posterior tibial: --------- Normal. Peroneal: Normal. Gastrocnemius: Not visualized. Soleus: Not visualized. Greater saphenous: ----- Normal. Lesser saphenous: ------ Not visualized. 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 Uncertain whether or not there is small amount of residual treatable thrombus in the distal aspect of the femoral vein. No regions of acute thrombus identified. IMPRESSION: Left femoral venous linear scarring. Uncertain whether or not any remaining treatable fem oral venous thrombus distally. Reviewed, dictated and finalized at location A. ECTOR SET UP AND LAY OUT IMPRESSION: Left femoral venous linear scarring. Uncertain whether or not any r emaining treatable femoral venous thrombus distally.
== END 2021-09-22 12:26 | disposition home or self-care (01) ==
PROVIDERS: PCP Internal Medicine; Visit Provider Nurse Practitioner
DX: I24.0 Acute coronary thrombosis not resulting in myocardial infarction (principal); R07.89 Other chest pain
CPT/HCPCS: 93971

== ENCOUNTER → 2022-08-19 10:24 | Outpatient (CLI) | payer MEDICARE, SELFPAY ==
--- NOTE | ~2022-08-19 | DEXA_ITS ---
Bone Density Report Name: ANUP DON Age: 82 Sex: Female Ethnicity: White Date of : 1940 Indication: postmenopausal osteoporosis; height loss; prior fracture; hysterectomy; Referring Provider: JUAN DANIEL QUIROZ Study: Bone densitometry was performed. Exam Date: August 19, 2022 Accession number: [id number] Bone Density: Region BMD T-score Z-score Classification AP Spine (L1-L4) 0.771 -2.5 0.3 Osteoporosis Femoral Neck (Left) 0.500 -3.1 -0.7 Osteoporosis Total Hip (Left) 0.631 -2.5 -0.3 Osteoporosis Femoral Neck (Right) 0.614 -2.1 0.3 Osteopenia Total Hip (Right) 0.680 -2.1 0.1 Osteopenia Total Hip Mean 0.656 -2.3 -0.1 Osteopenia World Health Organization criteria for BMD impression classify patients as: Normal (T-score at or above -1.0), Osteopenia (T-score between -1.0 and -2.5), or Osteoporosis (T-score at or below -2.5). 10-year Fracture Risk: FRAX not reported because: Some T-score for Spine Total or Hip Total or Femoral Neck at or below -2.5 Previous Exams: Region Exam Age BMD T-score BMD Change BMD Change Date g/cm2 vs Baseline vs Previous AP Spine(L1-L4) 08/19/2022 82 0.771 -2.5 0.031* 0.031* 11/02/2019 79 0.741 -2.8 Total Hip(Left) 08/19/2022 82 0.631 -2.5 -0.043* -0.043* 11/02/2019 79 0.674 -2.2 Total Hip(Right) 08/19/2022 82 0.680 -2.1 -0.001 -0.001 11/02/2019 79 0.681 -2.1 *Denotes significance at 95% confidence level, LSC for AP Spine = 0.022 g/cm2, LSC for Total Hip = 0.027 g/cm2 Clinical Information Provided by Patient: Has had a low trauma fracture Has 3 or more alcoholic drinks per day Has the following medical conditions: Hysterectomy Patient maximum height was 61.0 Menopause Age: 47 No regular weight bearing exercise Drinks caffeinated beverages Onset of menses at age 11 Number of children 5 Impression: The patient has established osteoporosis, based on the Left Femoral Neck T-score and the existence of a prior fracture. The patient has risk factors, including: excessive alcohol use, previous fracture. The BMD for the Total Hip(Left) decreased, changing by -0.043 since the last DXA exam. Discussion: HIGH RISK OF FRACTURE. BONE DENSITY IS UNDESIRABLY LOW AT ONE OR MORE SKELETAL SITES, CONSISTENT WITH POSTMENOPAUSAL OSTEOPOROSIS. This patient's lowest T-score, in a patient who has previously fractured, meets the World Health Organization's (WHO) criteria
== END ==
PROVIDERS: PCP Internal Medicine; Visit Provider Nurse Practitioner
DX: M81.0 Age-related osteoporosis without current pathological fracture (principal); M85.851 Other specified disorders of bone density and structure, right thigh
CPT/HCPCS: 77080

== ENCOUNTER 2022-12-17 14:29 | Outpatient (CLI) | payer MEDICARE, SELFPAY ==
--- NOTE | ~2022-12-17 | US_ITS ---
EXAMINATION: US art doppler w press LE BI DATE: 12/17/2022 15:46 INDICATION: Bilateral lower extremity peripheral arterial occlusive disease. TECHNIQUE: Segmental pressures and plethysmographic and Doppler waveforms of the brachial and lower e xtremity arteries were obtained. COMPARISON: None. FINDINGS: Right and left brachial artery pressures of 79 mm Hg and 116 mm Hg, respectively, are discordant (nor mal difference <= 30 mmHg). The right and left high-thigh pressure indices are 1.49 and 1.55, respect ively (normal > 1.2). The right ankle-brachial index (DEANA) is 1.09 (normal >= 0.9-1). The right great toe-brachial index (T BI) is 0.20 (normal >= 0.6-0.8). The right lower extremity segmental pressure gradients are increased between the high right thigh and the [id number] popliteal artery (normal gradients <= 20-30 mmHg between adjacent levels on the same leg or the same levels on the two legs). Arterial waveforms are biphasic with brisk systolic upstrokes throughout the arteries of the right lower limb. The left DEANA is 1.18. The left TBI is 0.46. The left lower extremity segmental pressure gradients are increased between the left high thigh and the [id number] popliteal artery. Arterial waveforms ar e biphasic with brisk systolic upstrokes throughout the arteries of the left lower limb. IMPRESSION: 1. Arterial occlusive disease to the bilateral lower limbs with normal bilateral ABIs but with mildly decreased left and moderate to severely decreased right TBIs. 2. Discordant brachial artery pressures suggesting hemodynamically significant stenosis more proximal ly in the right axillary, subclavian or innominate arteries. Consider carotid CT angiogram for furthe r evaluation. Reviewed, dictated and finalized at location A. R PUMPER IMPRESSION: 1. Arterial occlusive disease to the bilateral lower limbs with normal bilatera l ABIs but with mildly decreased left and moderate to severely decreased right TBIs. 2. Discordant brachial artery pressures suggesting hemodynamically significant stenosis more proximally in the right axillary, subclavian or innominate arteri es. Consider carotid CT angiogram for further evaluation.
== END 2022-12-17 14:30 | disposition home or self-care (01) ==
PROVIDERS: PCP Internal Medicine; Visit Provider Podiatrist Foot & Ankle Surgery
DX: I73.9 Peripheral vascular disease, unspecified (principal)
CPT/HCPCS: 93923

== ENCOUNTER 2022-12-28 16:27 | Emergency (ER) | payer MEDICARE, SELFPAY ==
[2022-12-28] VITALS (24 sets, daily range): BP systolic 108–135; BP diastolic 63–93; PULSE 60–80; RESP 11–22; TEMP 36.6; O2SAT 99–100
--- NOTE | ~2022-12-28 | XR_ITS ---
EXAMINATION: XR chest 2V Exam Date/Time: 12/28/2022 17:50 [facility] HISTORY: chest pain AND NAUSEAS Comparison: 02/03/2021. RESULT: Lines, tubes, and devices: Surgical clips over the GE junction. Lungs and pleura: Calcified right lower lung granuloma. Bilateral scar/atelectasis. Senescent change s. Cardiomediastinal silhouette: Stable. Other: No acute osseous or upper abdominal finding. Right humeral head fracture, healed in deformity . Stable mild lower thoracic compression deformity. IMPRESSION: No acute cardiopulmonary process. Reviewed, dictated and finalized at location K. ON FILLER
--- NOTE | ~2022-12-28 | CT_ITS ---
EXAMINATION: CTA chest PE protocol DATE: 12/28/2022 21:01 INDICATION: Chest pain, elevated d-dimer TECHNIQUE: Computed tomography angiography (CTA) of the chest was performed with 100 mL Omnipaque-350 intravenous contrast timed to evaluate the pulmonary arteries. Coronal maximum intensity projection 3D-reconstructions were created by the technologist. The dose-length product (DLP) was 281.83 mGy-cm. Automated exposure control and iterative reconstruction technique were employed. COMPARISON: None. FINDINGS: Lung parenchyma and airways: Dependent scar and atelectasis. Multiple calcified pulmonary granulomas. A few scattered centrilobular and tree-in-bud opacities are present in the lungs. Scattered areas of mosaic attenuation, most evident in the left upper lobe and dependent bilateral lower lobes. Bibasil ar scar/atelectasis. Pleura: Unremarkable. Thoracic inlet, axillae and chest wall: Unremarkable. Thoracic aorta: Moderate ectasia and arch calcification. Common origin of the brachiocephalic and lef t common carotid arteries. Aberrant right subclavian artery. Mediastinum: Normal. Heart and pericardium: Mild cardiomegaly. Coronary artery calcifications: Absent. Upper abdomen: Surgical clips at the GE junction. Moderate hiatal hernia. Mural thrombus in the proxi mal abdominal aorta. Atrophic right kidney Bones: No acute osseous finding. Pulmonary arteries: Study quality: Adequate. No pulmonary emboli detected. IMPRESSION: No CT evidence of acute pulmonary embolus. Pulmonary opacities may reflect atypical infection, airway s disease, or hypersensitivity pneumonitis. Reviewed, dictated and finalized at location K. [facility] MACHINE OPERATOR IMPRESSION: No CT evidence of acute pulmonary embolus. Pulmonary opacities may reflect atyp ical infection, airways disease, or hypersensitivity pneumonitis.
--- NOTE | 2022-12-28 16:33 | ECG_ITS ---
Measurements Intervals [place] Rate: 71 P: 45 WI: 150 QRS: -35 QRSD: 85 T: 24 QT: 371 QTc: 403 Interpretive Statements SINUS RHYTHM LEFT AXIS DEVIATION PATTERN CONSISTENT WITH PULMONARY DISEASE BORDERLINE T WAVE ABNORMALITY- ANTERIOR LEADS BASELINE ARTIFACT- V4 BORDERLINE ECG COMPARED TO ECG 02/03/2021 18:06:39 LEFT-AXIS DEVIATION NOW PRESENT Electronically Signed On 12-29-2022 6:34:41 [employer] by Dominguez Jack D.O.
[2022-12-28 17:08] LABS: Prothrombin Time 12.5 Seconds (11.1-14.7)
[2022-12-28 17:09] LABS: Partial Thromboplastin Time 25.1 SECONDS (22.3-36.8)
[2022-12-28 17:10] LABS: Basophils Percent Auto 0.6 % (0.2-1.2); Eosinophils Absolute Auto 0.2 K/mm3 (0-0.3); Eosinophils Percent Auto 2.5 % (0-4.4); Hematocrit 40.1 % (37.0-47.0); Hemoglobin 12.7 g/dL (12.0-15.0); Immature Granulocyte Absolute 0.02 K/mm3 (0.00-0.031); Immature Granulocyte Percent A 0.3 % (0-0.5); Lymphocytes Absolute Auto 1.09 K/mm3 (0.9-3.2); Mean Corpuscular HGB Conc 31.7 g/dl (32-36); Mean Corpuscular Hemoglobin 31.4 pg (26-34); Mean Corpuscular Volume 99.3 fl (80-100); Mean Platelet Volume 10.3 fl (7.4-10.4); Monocytes Absolute Auto 0.7 K/mm3 (0.1-0.6); Monocytes Percent Auto 9.8 % (2.6-8.5); Neutrophils Absolute Auto 4.8 K/mm3 (1.3-6.7); Neutrophils Percent Auto 70.8 % (45.5-73.1); Platelet Count Result 213 k/mm3 (150-375); Red Blood Count 4.04 M/mm3 (4.2-5.4); Red Cell Distribution Width 14.9 % (11.5-14.5); White Blood Count 6.8 K/mm3 (4.5-10.0)
[2022-12-28 17:12] LABS: Alanine Aminotransferase 15 U/L (6-35); Albumin Level 3.8 g/dL (3.5-5.1); Alkaline Phosphatase 83 U/L (38-126); Anion Gap 4 mmol/L (8-16); Aspartate Amino Transferase 25 U/L (14-36); Bilirubin,Total 0.5 mg/dL (0.2-1.3); Blood Urea Nitrogen 15 mg/dL (7-17); Calcium 9.2 mg/dL (8.4-10.2); Carbon Dioxide 27 mmol/L (22-30); Chloride 106 mmol/L (98-107); Estimated CRCL calculation 31 ml/min; Estimated Glomerular Filt Rate 60; Glucose 87 mg/dL (65-110); Lipase 119 U/L (23-300); Potassium 4.5 mmol/L (3.4-5.0); Sodium 137 mmol/L (137-145)
[2022-12-28 17:21] LABS: Troponin I < 0.012 ng/mL (0.000-0.034)
[2022-12-28 19:57] LABS: Troponin I < 0.012 ng/mL (0.000-0.034)
--- NOTE | 2022-12-28 20:24 | ED.GENADULT ---
HPI - General Adult General Chief complaint: Chest Pain Stated complaint: chest pain since this morning Time Seen by Provider: 12/28/22 19:32 History of Present Illness HPI narrative: This is an 82-year-old female with dementia presenting ED with a chief complaint of chest pain. Patient says that when she woke up at 8:00 a.m. this morning she had an uncomfortable tightness in the center of her chest. It is nonradiating, 6/10 in intensity and lasted until 5:00 p.m. when it resolved on her own in our lobby. She has never experienced pain like this before. She says it was improved with V8 juice and there are no exacerbating factors. Says it is associated with exertion, but no vomiting diaphoresis or radiation. She denies fever, chills, cough, abdominal pain, urinary symptoms or GI symptoms. Patient does have a history of GERD but has not been taking medications for it. Related Data Home Medications Medication Instructions Recorded Confirmed furosemide 20 mg tablet 20 mg PO DAILY 11/08/22 11/08/22 Allergies Allergy/AdvReac Type Severity Reaction Status Date / Time No Known Allergies Allergy Verified 12/28/22 19:16 [facility] Past Medical History Medical History Chest tightness Deep venous thrombosis Depression Light headedness Osteoporosis Post-menopausal Screening for breast cancer Stomach ulcer Vision changes Surgical History Surgical History History of colonoscopy History of hernia surgery 2012 History of surgery 1988 History of surgery on wrist 2005 Hx of gastric bypass 1979 Family History Family History Mother Family history of arthritis Family history of diabetes mellitus in first degree relative Sibling Family history of heart disease in male family member before age 55 Family history of diabetes mellitus in first degree relative Father Acute myocardial infarction Other Diabetes mellitus High cholesterol Social History Social History Smoking status: Never smoker Second hand tobacco smoke exposure: No Alcohol intake: current Drinks per week: 14 Substance use: never Other substance usage details: patient says she drinks a little rum or whiskey every night Living arrangements: with family Occupation/Education: retired Gender identity (if verbalized by the patient): Female Spiritual care concerns: No Exam Narrative: APPEARANCE: No apparent distress. patient is pleasant, A&O x2 Head: atraumatic. EYES: EOMI, NOSE: Atraumatic NECK: Trachea midline RESPIRATORY: No increased rate of breathing, clear to auscultation bilaterally CARDIOVASCULAR: RRR, no peripheral edema ABDOMINAL: Non-distended, soft nontender no guarding or rebound MUSCULOSKELETAl: No obvious deformities NEURO: Alert. Moving 4/4 extremities SKIN:: Warm, dry. Normal color PSYCHIATRIC: Normal affect Course Vital Signs Vital signs: Vital Signs Temperature 98 F 12/28/22 16:29 Pulse Rate 80 12/28/22 16:29 Respiratory Rate 16 12/28/22 16:29 Blood Pressure 134/92 H 12/28/22 16:29 Pulse Oximetry 100 12/28/22 16:29 Oxygen Delivery Room Air 12/28/22 16:29 Temperature 98 F 12/28/22 16:29 Pulse Rate 62 12/28/22 23:47 Respiratory Rate 18 12/28/22 23:47 Blood Pressure 118/79 12/28/22 23:47 Pulse Oximetry 99 12/28/22 23:47 Oxygen Delivery Room Air 12/28/22 16:29 Medical Decision Making MDM Narrative Medical decision making narrative: -Presentation: 82-year-old female presenting to ED with chest tightness. While patient denies this ever happened before there is a diagnosis of chest tightness and our medical history. given the patient's advanced age and that she is a poor historian we will do a ACS workup including a BNP and D-dimer. She is
[2022-12-28 20:25] LABS: D Dimer 1.59 ug/mL (<0.48)
[2022-12-28 20:30] LABS: NT Pro B Type Natriuretic Pept 646 pg/mL (19.9-100)
[2022-12-28 22:54] LABS: Troponin I < 0.012 ng/mL (0.000-0.034)
== END 2022-12-29 00:34 | disposition home or self-care (01) ==
PROVIDERS: Emergency Medicine; Emergency Provider Emergency Medicine; PCP Internal Medicine
DX: R07.89 Other chest pain (principal); F03.90 Unspecified dementia, unspecified severity, without behavioral disturbance, psychotic disturbance, mood disturbance, and anxiety; M81.0 Age-related osteoporosis without current pathological fracture; K21.9 Gastro-esophageal reflux disease without esophagitis; Z86.718 Personal history of other venous thrombosis and embolism; Z98.84 Bariatric surgery status; R94.31 Abnormal electrocardiogram [ECG] [EKG]
CPT/HCPCS: 36415; 71046; 71275; 80053; 83690; 83880; 84484; 85025; 85380; 85610; 85730; 93005; 99284; Q9967